=== PATIENT | female | born 1980 | race Hispanic/Latino ===

== ENCOUNTER 2018-04-16 12:37 | Emergency (ER) | payer SELFPAY ==
[2018-04-16 14:42] LABS: Urine Blood NEGATIVE (NEG); Urine Glucose NEGATIVE (NEG); Urine Protein NEGATIVE (NEG); Urine Specific Gravity >1.030 (1.005-1.030); Urine pH 6.5 (5.0-7.0)
--- NOTE | 2018-04-16 15:52 | RAD REPORT ---
EXAM DESCRIPTION: Ribs Right - 04/16/2018 2:45 pm CLINICAL HISTORY: Right rib pain FINDINGS: No fracture is seen
[2018-04-16] MEDS ORDERED: KETOROLAC 30 MG/ML INJ ONE (15:53)
--- NOTE | 2018-04-16 15:53 | RAD REPORT ---
EXAM DESCRIPTION: Arabella Single View04/16/2018 2:45 pm CLINICAL HISTORY: Chest pain COMPARISON: none FINDINGS: The lungs appear clear of acute infiltrate. The heart is normal size IMPRESSION: No acute abnormalities displayed
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
== END 2018-04-16 16:05 | disposition home or self-care (01) ==
LOC: ER 12:37
DX: S29.011A Strain of muscle and tendon of front wall of thorax, initial encounter (principal); S20.211A Contusion of right front wall of thorax, initial encounter; Y08.89XA Assault by other specified means, initial encounter; Y93.9 Activity, unspecified; Y92.89 Other specified places as the place of occurrence of the external cause; Z72.0 Tobacco use; I10 Essential (primary) hypertension
CPT/HCPCS: 71045; 81003; 81025; 96372; 99284